=== PATIENT | male | born 1960 | race Two or more races ===

== ENCOUNTER 2021-03-15 01:41 | Emergency (ER) | payer OTHER ==
[~2021-03-15] VITALS: Ht 160 cm; Wt 79.4 kg
[~2021-03-15 01:41] MED LIST: LISIPOW MT; PRILOSEC MT; [UNRECOGNIZED DRUG - REMARK]
[2021-03-15] MEDS ORDERED: ACETAMINOPHEN 325 MG TAB PO ONE (02:15)
[2021-03-15] MEDS ORDERED: IBUPROFEN 800 MG TAB PO ONE (02:15)
[2021-03-15 02:25] LABS: Urine Bacteria FEW /hpf (None Seen); Urine Blood 1+ /uL (Negative); Urine Mucus FEW (None Seen); Urine Specific Gravity 1.021 (1.001-1.035); Urine WBC 1 /hpf (0 - 3)
[2021-03-15 02:30] LABS: Basophils # (auto) 0.1 10 ^3/uL (0-0.2); Basophils % (auto) 0.5 % (0.0-2.0); Eosinophils # (auto) 0.1 10 ^3/uL (0-0.8); Eosinophils % (auto) 0.5 % (0.0-7.0); Hematocrit 47.9 % (41.0-53.0); Hemoglobin 16.6 g/dL (13.5-17.5); Mean Corpuscular Hemoglobin 29.2 pg (28.0-32.0); Mean Corpuscular Hgb Conc. 34.7 g/dL (32.0-36.0); Mean Corpuscular Volume 84.2 fL (80.0-100.0); Monocytes # (auto) 0.7 10 ^3/uL (0-1.3); Monocytes % (auto) 6.2 % (0.0-12.0); Neutrophils # (auto) 9.4 10 ^3/uL (1.6-8.6); Neutrophils % (auto) 83.8 % (37.0-80.0); Nucleated Red Blood Cells % 0.1 %; Red Blood Cells 5.68 10^6/uL (4.5-5.90); White Blood Cell 11.2 10^3/uL (4.4-10.8)
[2021-03-15 02:46] LABS: Albumin 3.9 g/dL (3.4-5.0); BUN/Creatinine Ratio 15.2; Calcium 8.6 mg/dL (8.5-10.1); Potassium 4.6 mmol/L (3.5-5.1)
[2021-03-15 02:49] LABS: Bilirubin, Total 0.6 mg/dL (0.2-1.0); Total Protein 7.5 g/dL (6.4-8.2)
[2021-03-15] MEDS ORDERED: TAMSULOSIN HYDROCHLORIDE 0.4 MG CAP PO ONE (13:15)
[2021-03-15] MEDS ORDERED: METOCLOPRAMIDE HCL 5MG/ml INJ 2ml VIAL IV ONE (13:15)
[2021-03-15] MEDS ORDERED: cefTRIAXone 1GM/50ML D5W 50 ML IV ONE (13:15)
[2021-03-15] MEDS ORDERED: KETOROLAC TROMETH 30 MG/ML 1ML VIAL IV ONE (13:15)
[2021-03-15 14:10] VITALS: BP 158/88
== END 2021-03-15 16:55 | disposition home or self-care (01) ==
LOC: ER 01:42
DX: N20.0 Calculus of kidney (principal); E11.65 Type 2 diabetes mellitus with hyperglycemia; I10 Essential (primary) hypertension; K21.9 Gastro-esophageal reflux disease without esophagitis; N12 Tubulo-interstitial nephritis, not specified as acute or chronic
CPT/HCPCS: 36415; 74176; 80053; 81001; 82150; 83690; 85025; 93005; 96365; 96366; 96375; 99285; J0696; J1885; J2765

== ENCOUNTER 2025-07-27 23:34 | Emergency (ER) | payer OTHER ==
[~2025-07-27] VITALS: Ht 170.2 cm; Wt 67.0 kg
--- NOTE | 2025-07-28 00:37 | ED.PDOC ---
History of Present Illness HPI Comments 65-year-old male who came to ER for a blood pressure. Patient has history of hypertension, recently changes losartan to lisinopril. For the past few days, patient has been having nausea, headaches and generalized weakness. Noted that his blood pressure was elevated despite taking the new medications. Upon arrival blood pressure was 192/119 mmHg Chief Complaint: High Blood Pressure Time Seen by MD: 00:37 Primary Care Provider: SHELBIE Reviewed Notes: Nurses Notes Allergies: Coded Allergies: NO KNOWN ALLERGIES (Unverified , 04/25/10) Home Meds Active Scripts Sitagliptin Phosphate (Januvia) 100 Mg Tab, 1 TAB PO DAILY, #90 TAB 3 Refills Prov:CLINTON CANTU MD 07/28/25 Metformin Hydrochloride (Metformin Hcl) 1,000 Mg Tab, 1 TAB PO BID, #180 TAB 3 Refills Prov:CLINTON CANTU MD 07/28/25 Amlodipine Besylate (Amlodipine Besylate) 5 Mg Tab, 1 TAB PO DAILY, #90 TAB 3 Refills Prov:CLINTON CANTU MD 07/28/25 Reported Medications [Lisinopril] (Lisinopril) No Conflict Check, MT BID 04/26/10 [Prilosec] No Conflict Check, MT DAILY 04/26/10 [Stomach Med Unknown] No Conflict Check 04/25/10 Information Source: Patient Mode of Arrival: Ambulatory Past Medical History PAST MEDICAL HISTORY: DM, GERD, HTN Surgical History: Denies all surgeries Family History Family History: Unknown Social History Smoker: Non-Smoker Alcohol: Denies ETOH Use Drugs: Denies Drug Use Lives In: Home Constitutional: denies: chills, diaphoresis, fatigue, fever, malaise, sweats, weakness, others EENTM: denies: blurred vision, double vision, ear bleeding, ear discharge, ear drainage, ear pain, ear ringing, eye pain, eye redness, hearing loss, mouth pain, mouth swelling, nasal discharge, nose bleeding, nose congestion, nose pain, photophobia, tearing, throat pain, throat swelling, voice changes, others Respiratory: denies: cough, hemoptysis, orthopnea, SOB at rest, shortness of breath, SOB with excertion, stridor, wheezing, others Cardiovascular: denies: chest pain, dizzy spells, diaphoresis, Dyspnea on exertion, edema, irregular heart beat, left arm pain, lightheadedness, palpitations, PND, syncope, others Gastrointestinal: denies: abdomen distended, abdominal pain, blood streaked bowels, constipated, diarrhea, dysphagia, difficulty swallowing, hematemesis, melena, nausea, poor appetite, poor fluid intake, rectal bleeding, rectal pain, vomiting, others Genitourinary: denies: burning, dysuria, flank pain, frequency, hematuria, incontinence, penile discharge, penile sore, pain, testicle pain, testicle swelling, urgency, others Neurological: reports: headache, weakness; denies: dizziness, fainting, left sided numbness, left sided weakness, numbness, paresthesia, pre-existing deficit, right sided numbness, right sided weakness, seizure, speech problems, tingling, tremors, others Musculoskeletal: denies: back pain, gout, joint pain, joint swelling, muscle pain, muscle stiffness, neck pain, others Integumetry: denies: bruises, change in color, change in hair/nails, dryness, laceration, lesions, lumps, rash, wounds, others Allergic/Immunocompromised: denies: Difficulty Healing, Frequent Infections, Hives, Itching, others Hematologic/Lymphatic: denies: anemia, blood clots, easy bleeding, easy bruising, swollen glands, others Endocrine: denies: excessive hunger, excessive sweating, excessive thirst, excessive urination, flushing, intolerance to cold, intolerance to heat, unexplained weight gain, unexplained weight loss, others Psychiatric: denies: anxiety, bipolar disorder, depression, hopeless, panic disorder, schizophrenia, sleepless, suicidal, others Physical Exam General Appearance: No Apparent Distress, Normal HEENT: Normal ENT Inspection, Pharynx Normal, TMs Normal Neck: Full Range of Motion, Non-Tender, Normal, Normal Inspection Respiratory: Chest Non-Tender, Lungs Clear, No Accessory Muscle Use, No Respiratory Distress, Normal Breath Sounds Cardiovascular: No Edema, No JVD, No Murmur, No Gallop, Normal Peripheral Pulses, Regular Rate/Rhythm Breast Exam: Deferred Gastrointestinal: No Organomegaly, Non Tender, No Pulsatile Mass, Normal Bowel Sounds, Soft Genitalia: Deferred Pelvic: Deferred Rectal: Deferred Extremities: No calf tenderness, Normal capillary refill, Normal inspection, Normal range of motion, Non-tender, No pedal edema Musculoskeletal : Apperance: Normal Neurologic: Alert, auto winder II-XII nml as Tested, No Motor Deficits, Normal Affect, Normal Mood, No Sensory Deficits Cerebellar Function: Normal Reflexes: Normal Skin: Dry, Normal Color, Warm Lymphatic: No Adenopathy Was a procedure done? Was a procedure done?: No Differential Dx Considerations may include: Hypertensive urgency, headaches, weakness X-Ray, Labs, Meds, VS Vital Signs Date Time Temp Pulse Resp B/P (MAP) Pulse Ox O2 Delivery O2 Flow Rate FiO2 07/28/25 02:42 68 18 98 Room Air 07/28/25 02:42 98.2 68 18 135/82 (99) 98 98.2 07/28/25 01:00 97.8 75 18 175/94 (121) 96 97.8 07/28/25 00:56 175/94 07/27/25 23:41 98.6 70 16 192/119 98 98.6 Lab Test 07/28/25 00:31 Range/Units White Blood Count 6.5 4.4-10.8 10^3/uL Red Blood Count 5.66 4.5-5.90 10^6/uL Hemoglobin 16.2 13.5-17.5 g/dL Hematocrit 48.0 41.0-53.0 % Mean Corpuscular Volume 84.8 80.0-100.0 fL Mean Corpuscular Hemoglobin 28.7 28.0-32.0 pg Mean Corpuscular Hemoglobin Concent 33.8 32.0-36.0 g/dL Red Cell Distribution Width 13.6 11.8-14.3 % Platelet Count 234 140-450 10^3/uL Mean Platelet Volume 8.4 6.9-10.8 fL Neutrophils (%) (Auto) 64.2 37.0-80.0 % Lymphocytes (%) (Auto) 22.0 10.0-50.0 % Monocytes (%) (Auto) 9.9 0.0-12.0 % Eosinophils (%) (Auto) 3.2 0.0-7.0 % Basophils (%) (Auto) 0.7 0.0-2.0 % Neutrophils # (Auto) 4.1 1.6-8.6 10 ^3/uL Lymphocytes # (Auto) 1.4 0.4-5.4 10 ^3/uL Monocytes # (Auto) 0.6 0-1.3 10 ^3/uL Eosinophils # (Auto) 0.2 0-0.8 10 ^3/uL Basophils # (Auto) 0 0-0.2 10 ^3/uL Nucleated Red Blood Cells 0.0 % Sodium Level 139 136-145 mmol/L Potassium Level 4.0 3.5-5.1 mmol/L Chloride Level 103 98-107 mmol/L Carbon Dioxide Level 27 20-31 mmol/L Anion Gap 9 5-15 Blood Urea Nitrogen 11 9-23 mg/dL Creatinine 0.89 0.700-1.30 mg/dL Glomerular Filtration Rate Calc 95 >90 mL/min BUN/Creatinine Ratio 12.4 10.0-20.0 Serum Glucose 246 H 74-106 mg/dL Calcium Level 9.4 8.7-10.4 mg/dL Total Bilirubin 0.4 0.2-1.0 mg/dL Aspartate Amino Transferase (AST) 19 13-40 U/L Alanine Aminotransferase (ALT) 19 7-40 U/L Alkaline Phosphatase 163 H 46-116 U/L Troponin I High Sensitivity 9 </=54 ng/L Total Protein 7.1 5.7-8.2 g/dL Albumin 4.5 3.2-4.8 g/dL Current Medications Medications (Trade) Dose Ordered Sig/Tricia Route Start Time Stop Time Status Last Admin Hydralazine HCl (Apresoline Tablet) 50 mg ONCE ONCE PO 07/28/25 00:30 07/28/25 00:31 DC 07/28/25 00:56 Acetaminophen/ Hydrocodone Bitart ([place] 5/325MG Tab) 1 tab ONCE ONCE PO 07/28/25 00:30 07/28/25 00:31 DC 07/28/25 00:57 Time of 1ST Reevaluation: 00:35 Reevaluation 1ST: Unchanged Patient Education/Counseling: Diagnosis, Treatment Family Education/Counseling: No Family Present SEPSIS Sepsis Screen Date sepsis recognized/suspect: Jul 27, 2025 Time Sepsis recognized/suspect: 2342 Recent Procedure: No On Antibiotic Therapy: No Respiratory Rate >20: No Heart Rate >90: No Temp<36 C (96.8 F) or >38.3 C: No SBP <90 or MAP <65 mmHG: No New Acute Mental Status Change: No Is the patient on CPAP, BIPAP,: No Physician Orders Electrocardigram (07/28/25 00:20) Vital Signs Date Time Temp Pulse Resp B/P (MAP) Pulse Ox O2 Delivery O2 Flow Rate FiO2 07/28/25 02:42 68 18 98 Room Air 07/28/25 02:42 98.2 68 18 135/82 (99) 98 98.2 07/28/25 01:00 97.8 75 18 175/94 (121) 96 97.8 07/28/25 00:56 175/94 07/27/25 23:41 98.6 70 16 192/119 98 98.6 Laboratory Tests Test 07/28/25 00:31 White Blood Count 6.5 10^3/uL (4.4-10.8) Medications Medications Dose Ordered Sig/Tricia Route Start Time Stop Time Status Last Admin Dose Admin Acetaminophen/ Hydrocodone Bitart 1 tab ONCE ONCE PO 07/28/25 00:30 07/28/25 00:31 DC 07/28/25 00:57 Hydralazine HCl 50 mg ONCE ONCE PO 07/28/25 00:30 07/28/25 00:31 DC 07/28/25 00:56 Departure 1 Departure Time of Disposition: 02:30 Impression: Primary Impression: Type 2 diabetes mellitus with hyperglycemia Additional Impression: Hypertensive urgency Disposition: 01 HOME / SELF CARE / HOMELESS Condition: Stable e-Prescriptions Sitagliptin Phosphate (Januvia) 100 Mg Tab 1 TAB PO DAILY, #90 TAB 3 Refills Prov: CLINTON CANTU MD 07/28/25 Metformin Hydrochloride (Metformin Hcl) 1,000 Mg Tab 1 TAB PO BID, #180 TAB 3 Refills Prov: CLINTON CANTU MD 07/28/25 Amlodipine Besylate (Amlodipine Besylate) 5 Mg Tab 1 TAB PO DAILY, #90 TAB 3 Refills Prov: CLINTON CANTU MD 07/28/25 Discharged With: Self Critical Care Note Critical Care Time?: No Stability Stability form required: No Heart Score Heart Score: Heart Score Response (Comments) Value History N/A 0 EKG N/A 0 Age N/A 0 Risk Factors N/A 0 Troponin N/A 0 Total 0 I personally scribed for CLINTON CANTU MD ([email or web address]) on 07/28/25 at 00:37. Electronically submitted by Cristopher Black ([email or web address]). CLINTON CANTU MD Jul 28, 2025 00:37
[2025-07-28 00:43] LABS: Hematocrit 48.0 % (41.0-53.0); Hemoglobin 16.2 g/dL (13.5-17.5); Mean Corpuscular Hemoglobin 28.7 pg (28.0-32.0); Mean Corpuscular Volume 84.8 fL (80.0-100.0); Nucleated Red Blood Cells % 0.0 %
[2025-07-28] MEDS: HYDROcodone-ACET 5/325MG TAB PO ONE (00:57)
[2025-07-28 01:05] LABS: Alanine Aminotransferase 19 U/L (7-40); Albumin 4.5 g/dL (3.2-4.8); Anion Gap 9 (5-15); BUN/Creatinine Ratio 12.4 (10.0-20.0); Bilirubin, Total 0.4 mg/dL (0.2-1.0); Blood Urea Nitrogen 11 mg/dL (9-23); Calcium 9.4 mg/dL (8.7-10.4); Carbon Dioxide 27 mmol/L (20-31); Chloride 103 mmol/L (98-107); Potassium 4.0 mmol/L (3.5-5.1); Sodium 139 mmol/L (136-145); Total Protein 7.1 g/dL (5.7-8.2)
[2025-07-28 01:06] LABS: Alkaline Phosphatase 163 U/L (46-116); Glucose 246 mg/dL (74-106)
[2025-07-28] MEDS ORDERED: AMLO1TAB22 PO (02:12)
[2025-07-28] MEDS ORDERED: SITA100T7 PO (02:12)
[2025-07-28] MEDS ORDERED: METF-372 PO (02:12)
[2025-07-28 02:42] VITALS: BP 135/82; PULSE 68; RESP 18; TEMP 98.2; O2SAT 98
== END 2025-07-28 02:42 | disposition home or self-care (01) ==
LOC: ER 23:34
DX: E11.65 Type 2 diabetes mellitus with hyperglycemia (principal); I16.0 Hypertensive urgency; Z79.899 Other long term (current) drug therapy
CPT/HCPCS: 36415; 80053; 84484; 85025